=== PATIENT | female | born 1955 | race Caucasian/White ===

== ENCOUNTER → 2016-04-28 | Outpatient (CLI) | payer BC ==
[2016-04-28 14:13] LABS: BASOPHILS % (AUTO) 0 % (0-2); EOSINOPHILS % (AUTO) 0 % (0-4); LYMPHOCYTES # (AUTO) 1.5 X10^3; MEAN CORPUSCULAR HEMOGLOBIN 28.1 PG (26.0-34.0); MEAN CORPUSCULAR HGB CONC 33.8 g/dL (31.0-37.0); MEAN CORPUSCULAR VOLUME 83 FL (80-100); MONOCYTES # (AUTO) 0.5 X10^3; MONOCYTES % (AUTO) 4 % (3-11); NEUTROPHILS # (AUTO) 8.8 X10^3; NEUTROPHILS % (AUTO) 81 % (51-67); PLATELET COUNT 269 10^3uL (150-450); WHITE BLOOD COUNT 10.83 10^3uL (4.0-11.0)
== END ==
LOC: RAD 13:15
PROVIDERS: ATTEND Internal Medicine
DX: J06.9 Acute upper respiratory infection, unspecified (principal)
CPT/HCPCS: 36415; 71020; 85025; 86140